=== PATIENT | male | born 1950 | race Caucasian/White ===

== ENCOUNTER 2017-04-12 00:46 | Emergency (ER) | payer MEDICARE, BC ==
[2017-04-12] MEDS ORDERED: predniSONE 20 MG TAB ONE (01:08)
== END 2017-04-12 01:13 | disposition home or self-care (01) ==
LOC: BURERS 00:46
DX: L50.0 Allergic urticaria (principal); E11.9 Type 2 diabetes mellitus without complications; Z79.84 Long term (current) use of oral hypoglycemic drugs; Z79.899 Other long term (current) drug therapy
CPT/HCPCS: 99282; J7506

== ENCOUNTER 2022-05-02 15:37 | Emergency (ER) | payer MEDICARE, OTHER ==
[2022-05-02 16:32] LABS: Bilirubin Negative (Negative); Blood, Urine Negative (Negative); Clarity Clear (Clear); Glucose, Urine (Dipstick) 500 mg/dL (Negative); Ketone, Urine Negative (Negative); Leukocyte Negative (Negative); Nitrite Negative (Negative); Protein, Urine (Dipstick) Negative (Neg-Trace); Urobilinogen 0.2 mg/dL (Less than 2)
[2022-05-02 16:33] LABS: Base Excess-Venous 1.5 mmol/L (-2.0 to 3.0); CO2 Tension (PvCO2) 44.4 mmHg (42.0-51.0); Calcium, Ionized 1.15 mmol/L (1.15-1.33); Chloride 93 mmol/L (98-107); Hemoglobin - Calc 15.9 g/dL (14.0-18.0); Potassium 4.5 mmol/L (3.5-5.1); Sodium 131 mmol/L (138-145); T. Carbon Dioxide 28.4 mmol/L (22.0-28.0); vO2 Saturation-calc 95.6 % (60.0-85.0)
[2022-05-02 16:33] LABS: Specific Gravity, Urine 1.008 (1.002-1.036)
[2022-05-02 16:36] LABS: Hemoglobin 14.1 g/dL (14.0-18.0); Mean Corpuscular HGB CONC 33.2 g/dL (32.0-36.0); Mean Corpuscular Volume 93.2 fl (78.0-98.0); Mean Platelet Volume 8.1 fL (7.4-10.4); Platelet Count 181 10x3/uL (130-400); Red Blood Cell (RBC) Count 4.57 mill/uL (4.70-6.10); White Blood Cell (WBC) Count 9.9 10x3/uL (4.8-10.8)
[2022-05-02 16:37] LABS: ALT (SGPT) 28 U/L (8-55); AST (SGOT) 14 U/L (5-34); Albumin 3.9 g/dL (3.4-4.8); Alkaline Phosphatase 75 U/L (40-110); Anion Gap 17 mmol/L (10-20); BUN (Urea Nitrogen) 19 mg/dL (8.4-25.7); Bilirubin, Total 0.3 mg/dL (0.2-1.2); Calc. Creatinine Clearance 0 mL/min (70-130); Calcium 8.7 mg/dL (7.8-10.44); Carbon Dioxide 23 mmol/L (23-31); Chloride 95 mmol/L (98-107); Estimated GFR 87; Globulin 2.1 g/dL (2.4-3.5); Glucose 301 mg/dL (83-110); Potassium 4.8 mmol/L (3.5-5.1); Sodium 130 mmol/L (136-145)
[2022-05-02 16:40] LABS: Band 12 % (5-11); Lymphocytes 1 % (21-51); MDiff Complete? YES; Monocytes 2 % (0-10); Neutrophil 83 % (42-75); Reactive Lymphocytes 2 % (0-10)
== END 2022-05-02 17:29 | disposition home or self-care (01) ==
LOC: BURERS 15:37
DX: E11.65 Type 2 diabetes mellitus with hyperglycemia (principal); I10 Essential (primary) hypertension; E78.5 Hyperlipidemia, unspecified; Z79.84 Long term (current) use of oral hypoglycemic drugs
CPT/HCPCS: 36416; 80053; 81003; 82330; 82435; 82803; 84132; 84295; 84484; 85014; 85025; 93005; 96360